=== PATIENT | female | born 2000 | race Caucasian/White ===

== ENCOUNTER 2024-07-28 07:10 | Emergency (ER) | payer OTHER ==
[2024-07-28 07:24] VITALS: BP 108/77; PULSE 106; RESP 20; TEMP 97.2; BMI 20.3
[2024-07-28] MEDS: diphenhydrAMINE HCL 25 MG CAPSULE (FP) PO ONE (07:50)
[2024-07-28] MEDS: predniSONE 20 MG TABLET (UD) PO ONE (07:50)
== END 2024-07-28 08:30 | disposition home or self-care (01) ==
LOC: FER 07:10
DX: R22.0 Localized swelling, mass and lump, head (principal); T78.1XXA Other adverse food reactions, not elsewhere classified, initial encounter; Z91.013 Allergy to seafood
CPT/HCPCS: 99283-25